=== PATIENT | male | born 1935 | race Caucasian/White ===

== ENCOUNTER 2016-12-05 10:22 | Day surgery (SDC) | payer MEDICARE, OTHER ==
[2016-12-05] VITALS (491 sets, daily range): BP systolic 131–142; BP diastolic 69–102; PULSE 59–65; TEMP 98–98.1; O2SAT 82–100
[~2016-12-05] VITALS: Ht 177.8 cm; Wt 81.8 kg
[~2016-12-05 10:22] MED LIST: ASPIRIN 81M81 MG/TA2 PO; BUSPAR10 MG PO; CIALIS20 MG PO; CLEOCIN HCL300 MG PO; GLUCOSAMINE & C1 CA1 PO; LASIX 20MG TABL20 MG PO; LIPITOR 40MG TA40 MG PO; LOTENSIN 1010 MG/TAB PO; OSTEO-BI-FLEX 21 TAB PO; PERCOCET 325 MG1 TA2 PO; PLAVIX 75MG TAB75 MG PO; PRILOSEC 20MG20 MG PO; RELAFEN 50500 MG/TAB PO; VIAGRA100 M1 PO; VITAMIN B122500 MCG SL; ZYLOPRIM 100MG100 MG PO
[2016-12-05 11:32] LABS: HEMATOCRIT 40.6 % (42.0-52.0); HEMOGLOBIN 13.9 g/dl (13.5-18.0); MEAN CELL VOLUME 93 fl (80.0-100.0); MEAN CORPUSCULAR HEMOGLOBIN 32 pg (27.0-31.0); MEAN CORPUSCULAR HGB CONC 34 g/dl (33.0-37.0); MEAN PLATELET VOLUME 11.1 fl (7.4-10.4); PLATELET COUNT 127 K/mm3 (130-400); RED BLOOD COUNT 4.36 M/mm3 (4.20-5.60); WHITE BLOOD COUNT 6.6 K/mm3 (4.8-10.8)
[2016-12-05 11:40] LABS: INR 1.2 (0.8-3.0); PROTHROMBIN TIME 12.8 SECONDS (9.7-12.8)
[2016-12-05 11:44] LABS: CALCIUM 8.8 mg/dL (8.4-10.2); CREATININE, serum 1.05 mg/dL (0.66-1.25); POTASSIUM 4.3 mmol/L (3.4-5.0)
[2016-12-05] MEDS ORDERED: VITAMIN B122500 MCG SL (12:20)
[2016-12-06] VITALS (474 sets, daily range): BP systolic 135–150; BP diastolic 65–82; PULSE 59; TEMP 97.7–98; O2SAT 88–100
== END 2016-12-06 09:19 | disposition home or self-care (01) ==
LOC: COL.CAR 10:22 → IMCU 13:54 → COL.CAR 12-06 09:19
PROVIDERS: Internal Medicine Interventional Cardiology
DX: I25.10 Atherosclerotic heart disease of native coronary artery without angina pectoris (principal); I10 Essential (primary) hypertension; I87.2 Venous insufficiency (chronic) (peripheral); E78.00 Pure hypercholesterolemia, unspecified; I83.893 Varicose veins of bilateral lower extremities with other complications; I65.23 Occlusion and stenosis of bilateral carotid arteries; Z95.0 Presence of cardiac pacemaker; Z95.818 Presence of other cardiac implants and grafts; Z79.02 Long term (current) use of antithrombotics/antiplatelets; Z80.9 Family history of malignant neoplasm, unspecified; Z82.49 Family history of ischemic heart disease and other diseases of the circulatory system
CPT/HCPCS: OP; C1725; C1760; C1769; C1874; C1887; C9600; J0583; J2250; J3010; Q9967

== ENCOUNTER 2017-01-23 07:47 | Day surgery (SDC) | payer MEDICARE, OTHER ==
[~2017-01-23] VITALS: Ht 177.8 cm; Wt 76.0 kg
[2017-01-23] VITALS (88 sets, daily range): BP systolic 102–143; BP diastolic 52–85; PULSE 59–63; TEMP 97.6–98.3; O2SAT 96–100
[2017-01-23] MEDS ORDERED: ASPIRIN 81M81 MG/TA2 PO (07:58)
[2017-01-23] MEDS ORDERED: LASIX 20MG TABL20 MG PO (08:02)
[2017-01-23] MEDS ORDERED: RELAFEN 50500 MG/TAB PO (08:02)
[2017-01-23] MEDS ORDERED: SUPER BETA PROSTATE PO (08:04)
[2017-01-23] MEDS ORDERED: EPA FISH OIL1 SGL PO (08:05)
[2017-01-23 08:33] LABS: HEMATOCRIT 40.7 % (42.0-52.0); HEMOGLOBIN 13.8 g/dl (13.5-18.0); MEAN CELL VOLUME 93 fl (80.0-100.0); MEAN CORPUSCULAR HEMOGLOBIN 32 pg (27.0-31.0); MEAN CORPUSCULAR HGB CONC 34 g/dl (33.0-37.0); MEAN PLATELET VOLUME 10.5 fl (7.4-10.4); PLATELET COUNT 139 K/mm3 (130-400); RED BLOOD COUNT 4.36 M/mm3 (4.20-5.60); REDCELL DISTRIBUTION WIDTH-CV 14.4 % (11.5-14.5); WHITE BLOOD COUNT 6.3 K/mm3 (4.8-10.8)
[2017-01-23 08:42] LABS: CALCIUM 9.1 mg/dL (8.4-10.2); CREATININE, serum 1.24 mg/dL (0.66-1.25)
[2017-01-23 08:47] LABS: INR 1.1 (0.8-3.0)
== END 2017-01-23 18:05 | disposition short-term general hospital (02) ==
LOC: COL.CAR 07:47 → ICU 17:32 → COL.CAR 18:05
PROVIDERS: Internal Medicine Interventional Cardiology
DX: I25.10 Atherosclerotic heart disease of native coronary artery without angina pectoris (principal); I10 Essential (primary) hypertension; E78.00 Pure hypercholesterolemia, unspecified; Z95.0 Presence of cardiac pacemaker; Z79.01 Long term (current) use of anticoagulants; Z82.49 Family history of ischemic heart disease and other diseases of the circulatory system
CPT/HCPCS: OP; C1725; C1760; C1769; C1874; C1887; C1894; C9600; J0583; J1644; J2250; J3010; Q9967

== ENCOUNTER 2017-10-23 19:00 | Emergency (ER) | payer MEDICARE, OTHER ==
[~2017-10-23] VITALS: Ht 177.8 cm; Wt 77.3 kg
[~2017-10-23 19:00] MED LIST changes: +EPA FISH OIL1 SGL PO; +SUPER BETA PROSTATE PO
[2017-10-23] MEDS ORDERED: ULTRAM 50MG TAB50 MG PO (20:53)
[2017-10-23 21:36] VITALS: BP 171/91; PULSE 73; TEMP 98.1
== END 2017-10-23 21:25 | disposition home or self-care (01) ==
LOC: COL.ER 19:00
DX: S43.102A Unspecified dislocation of left acromioclavicular joint, initial encounter (principal); S09.90XA Unspecified injury of head, initial encounter; I10 Essential (primary) hypertension; I25.10 Atherosclerotic heart disease of native coronary artery without angina pectoris; I49.5 Sick sinus syndrome; E78.5 Hyperlipidemia, unspecified; Z88.0 Allergy status to penicillin; Z88.5 Allergy status to narcotic agent; Z88.6 Allergy status to analgesic agent; Z79.82 Long term (current) use of aspirin; Z79.02 Long term (current) use of antithrombotics/antiplatelets; W18.39XA Other fall on same level, initial encounter

== ENCOUNTER → 2019-12-28 | Outpatient (CLI) | payer MEDICARE, OTHER ==
[~2019-12-28] MED LIST changes: +ULTRAM 50MG TAB50 MG PO
== END ==
LOC: ZCOL.LAB 10:30
DX: R06.02 Shortness of breath (principal); R42 Dizziness and giddiness

== ENCOUNTER 2019-12-31 08:28 | Emergency (ER) | payer MEDICARE, OTHER ==
[~2019-12-31] VITALS: Ht 177.8 cm; Wt 75.0 kg
[2019-12-31 08:31] VITALS: TEMP 97.7
[2019-12-31 09:28] LABS: BASO # 0.1 (0.0-0.2); EOS # 0.1 (0.0-0.7); EOS % 1.3 % (0-4.0); GRAN % 63.6 % (42.2-75.2); HEMATOCRIT 44.7 % (42.0-52.0); HEMOGLOBIN 14.9 g/dl (13.5-18.0); LYMPH # 1.4 (1.2-3.4); LYMPH % 23.2 % (20.0-51.0); MEAN CELL VOLUME 96 fl (80.0-100.0); MEAN CORPUSCULAR HEMOGLOBIN 32 pg (27.0-31.0); MEAN CORPUSCULAR HGB CONC 33 g/dl (33.0-37.0); MEAN PLATELET VOLUME 10.6 fl (7.4-10.4); MONO # 0.7 (0.1-0.6); MONO % 10.6 % (1.7-9.3); PLATELET COUNT 136 K/mm3 (130-400); RED BLOOD COUNT 4.67 M/mm3 (4.20-5.60); REDCELL DISTRIBUTION WIDTH-CV 14.6 % (11.5-14.5)
[2019-12-31 09:41] LABS: INR 1.4 (0.8-3.0); PROTHROMBIN TIME 16.1 SECONDS (9.7-12.8)
[2019-12-31 09:44] LABS: ALANINE AMINOTRANSFERASE 32 U/L (4-49); ALBUMIN 4.5 gm/dL (3.5-5.0); ALKALINE PHOSPHATASE 64 U/L (50-136); ANION GAP 9 mmol/L (7-16); AST,SGOT 36 U/L (15-37); BILIRUBIN,TOTAL 1.4 mg/dL (0.0-1.0); BLOOD UREA NITROGEN 18 mg/dL (9-20); CALCIUM 9.8 mg/dL (8.4-10.2); CARBON DIOXIDE 27 mmol/L (22-30); CHLORIDE 103 mmol/L (98-107); CREATININE, serum 1.29 (0.66-1.25); GLUCOSE 105 mg/dL (74-106); LIPASE 111 U/L (23-300); SODIUM 139 mmol/L (137-145); TOTAL PROTEIN 7.6 gm/dL (6.4-8.2)
[2019-12-31 09:46] LABS: C-REACTIVE PROTEIN < 0.5 mg/dL (0.0-0.9)
[2019-12-31 09:57] VITALS: BP 133/72; PULSE 60
[2019-12-31 10:11] LABS: COLLECTION METHOD CLEAN CATCH
[2019-12-31 10:26] LABS: PH 6 (5-8); SQUAMOUS EPITHELIAL None Seen /hpf; URINE APPEARANCE Clear; URINE BACTERIA None Seen /hpf; URINE BILIRUBIN Negative (NEGATIVE); URINE BLOOD Negative (NEGATIVE); URINE COLOR Yellow; URINE GLUCOSE Negative (NEGATIVE); URINE KETONE Negative (NEGATIVE); URINE LEUKOCYTE ESTERASE Negative (NEGATIVE); URINE NITRATE Negative (NEGATIVE); URINE PROTEIN(semi-quant) Negative (NEGATIVE); URINE RBC 0-2 /hpf; URINE UROBILINOGEN Negative (NEGATIVE)
== END 2019-12-31 10:49 | disposition home or self-care (01) ==
LOC: COL.ER 08:28
PROVIDERS: Emergency Medicine
DX: K92.2 Gastrointestinal hemorrhage, unspecified (principal); I25.10 Atherosclerotic heart disease of native coronary artery without angina pectoris; Z79.02 Long term (current) use of antithrombotics/antiplatelets; Z79.82 Long term (current) use of aspirin
CPT/HCPCS: J7040

== ENCOUNTER 2020-05-27 12:18 | Inpatient (IN) | payer MEDICARE, OTHER ==
[~2020-05-27] VITALS: Ht 177.8 cm; Wt 71.8 kg
[~2020-05-27 12:18] MED LIST changes: +ELIQUIS 5MG PO; +LOPRESSOR 225 MG/TAB PO; +NITROSTAT0.4 MG/TAB SL; +PACERONE100 MG PO
[2020-05-27 13:21] VITALS: BP 142/84; PULSE 74; TEMP 98.6
[2020-05-27 14:45] LABS: COLLECTION METHOD CLEAN CATCH
[2020-05-27] MEDS ORDERED: FLOMAX 0.40.4 MG/CAP PO (14:57)
[2020-05-27 15:01] LABS: ALBUMIN 3.8 gm/dL (3.5-5.0); CALCIUM 8.8 mg/dL (8.4-10.2); CREATININE, serum 0.97 (0.66-1.25); POTASSIUM 3.7 mmol/L (3.4-5.0); TOTAL PROTEIN 6.3 gm/dL (6.4-8.2)
[2020-05-27 15:02] LABS: BASO % 0.2 % (0.0-2.0); EOS % 0.1 % (0-4.0); GRAN # 10.2 (1.4-6.5); GRAN % 83.3 % (42.2-75.2); HEMATOCRIT 42.3 % (42.0-52.0); HEMOGLOBIN 14.1 g/dl (13.5-18.0); LYMPH # 1.1 (1.2-3.4); LYMPH % 8.6 % (20.0-51.0); MEAN CELL VOLUME 90 fl (80.0-100.0); MEAN CORPUSCULAR HEMOGLOBIN 30 pg (27.0-31.0); MEAN CORPUSCULAR HGB CONC 33 g/dl (33.0-37.0); MEAN PLATELET VOLUME 10.9 fl (7.4-10.4); MONO # 0.9 (0.1-0.6); MONO % 7.6 % (1.7-9.3); PLATELET COUNT 132 K/mm3 (130-400); RED BLOOD COUNT 4.69 M/mm3 (4.20-5.60); REDCELL DISTRIBUTION WIDTH-CV 14.4 % (11.5-14.5)
[2020-05-27 15:07] LABS: INR 1.1 (0.8-3.0)
[2020-05-27 15:08] LABS: PRE ALBUMIN 17.8 mg/dL (17.6-36.0)
[2020-05-27] MEDS ORDERED: TYLENOL 500MG500 MG PO (15:13)
[2020-05-27] MEDS ORDERED: DULCOLAX S10 MG/SUPP RC (15:15)
[2020-05-27] MEDS ORDERED: THERATEARS 15 M15 ML OP (15:16)
[2020-05-27] MEDS ORDERED: MILK OF MA400 MG/52 PO (15:17)
[2020-05-27] MEDS ORDERED: IBU400 MG PO (15:18)
[2020-05-27] MEDS ORDERED: PROTONIX20 MG PO (15:19)
[2020-05-27] MEDS ORDERED: EXPECTORANT DM120 ML PO (15:20)
[2020-05-27] MEDS ORDERED: SEROQUEL 2525 MG/TAB PO (15:21)
[2020-05-27] MEDS ORDERED: DECADRON6 MG PO (15:22)
[2020-05-27] MEDS ORDERED: HALDOL .5M0.5 MG/TAB PO ×2 (15:22→15:24)
[2020-05-27] MEDS ORDERED: HALDOL 5MG/ML5 MG/ML IJ (15:25)
[2020-05-27 15:27] LABS: PH 6 (5-8); SQUAMOUS EPITHELIAL None Seen /hpf; URINE APPEARANCE Clear; URINE BACTERIA None Seen /hpf; URINE BILIRUBIN Negative (NEGATIVE); URINE BLOOD Negative (NEGATIVE); URINE COLOR Yellow; URINE GLUCOSE Negative (NEGATIVE); URINE KETONE Negative (NEGATIVE); URINE LEUKOCYTE ESTERASE Negative (NEGATIVE); URINE NITRATE Negative (NEGATIVE); URINE PROTEIN(semi-quant) Negative (NEGATIVE); URINE RBC 0-2 /hpf; URINE UROBILINOGEN Negative (NEGATIVE)
[2020-05-27] MEDS ORDERED: NORCO 325 MG-51 TAB PO (15:31)
[2020-05-27 16:00] VITALS: BP 166/88; PULSE 60; TEMP 97.8
[2020-05-27 19:42] VITALS: BP 164/52; PULSE 75; TEMP 100
[2020-05-28] VITALS (13 sets, daily range): BP systolic 113–174; BP diastolic 53–87; PULSE 65–88; TEMP 98.3–100
[2020-05-29] VITALS (7 sets, daily range): BP systolic 129–178; BP diastolic 55–85; PULSE 61–83; TEMP 97.8–99.5
[2020-05-29 06:53] LABS: BASO % 0.1 % (0.0-2.0); GRAN # 8.2 (1.4-6.5); GRAN % 79.7 % (42.2-75.2); HEMOGLOBIN 12.2 g/dl (13.5-18.0); LYMPH # 0.9 (1.2-3.4); LYMPH % 8.7 % (20.0-51.0); MEAN CELL VOLUME 91 fl (80.0-100.0); MEAN CORPUSCULAR HEMOGLOBIN 31 pg (27.0-31.0); MEAN CORPUSCULAR HGB CONC 33 g/dl (33.0-37.0); MEAN PLATELET VOLUME 10.4 fl (7.4-10.4); MONO # 1.2 (0.1-0.6); MONO % 11.3 % (1.7-9.3); PLATELET COUNT 58 K/mm3 (130-400); REDCELL DISTRIBUTION WIDTH-CV 14.5 % (11.5-14.5)
[2020-05-29 06:55] LABS: HEMATOCRIT 36.5 % (42.0-52.0)
[2020-05-29 07:05] LABS: CALCIUM 8.1 mg/dL (8.4-10.2); CREATININE, serum 0.91 (0.66-1.25); POTASSIUM 3.7 mmol/L (3.4-5.0)
[2020-05-30 03:48] VITALS: BP 158/59; PULSE 68; TEMP 97.5
[2020-05-30 07:20] LABS: CALCIUM 8.2 mg/dL (8.4-10.2); CREATININE, serum 0.78 (0.66-1.25); POTASSIUM 3.6 mmol/L (3.4-5.0)
[2020-05-30 08:51] VITALS: BP 180/65; PULSE 72; TEMP 97.9
[2020-05-30 09:23] LABS: BASO % 0.1 % (0.0-2.0); EOS % 0.4 % (0-4.0); GRAN % 81.3 % (42.2-75.2); LYMPH # 0.9 (1.2-3.4); MEAN CELL VOLUME 91 fl (80.0-100.0); MEAN CORPUSCULAR HEMOGLOBIN 30 pg (27.0-31.0); MEAN CORPUSCULAR HGB CONC 33 g/dl (33.0-37.0); MEAN PLATELET VOLUME 10.9 fl (7.4-10.4); MONO # 1.1 (0.1-0.6); MONO % 9.8 % (1.7-9.3); PLATELET COUNT 136 K/mm3 (130-400); RED BLOOD COUNT 4.02 M/mm3 (4.20-5.60); REDCELL DISTRIBUTION WIDTH-CV 14.3 % (11.5-14.5)
[2020-05-30 10:24] LABS: HEMATOCRIT 36.6 % (42.0-52.0)
[2020-05-30 12:19] VITALS: BP 186/67; PULSE 95; TEMP 96.9
[2020-05-30 16:15] VITALS: BP 178/82; PULSE 78; TEMP 97.4
[2020-05-30 19:34] VITALS: BP 160/71; PULSE 81; TEMP 99.9
[2020-05-30 23:23] VITALS: BP 156/64; PULSE 84; TEMP 100.2
[2020-05-31 04:42] VITALS: BP 163/76; PULSE 76; TEMP 100.9
[2020-05-31 07:17] LABS: COLLECTION METHOD CLEAN CATCH
[2020-05-31 07:22] LABS: BASO % 0.1 % (0.0-2.0); EOS % 0.4 % (0-4.0); GRAN # 7.8 (1.4-6.5); GRAN % 81.2 % (42.2-75.2); HEMOGLOBIN 11.5 g/dl (13.5-18.0); LYMPH # 0.7 (1.2-3.4); LYMPH % 7.4 % (20.0-51.0); MEAN CELL VOLUME 91 fl (80.0-100.0); MEAN CORPUSCULAR HEMOGLOBIN 30 pg (27.0-31.0); MEAN CORPUSCULAR HGB CONC 33 g/dl (33.0-37.0); MEAN PLATELET VOLUME 11.7 fl (7.4-10.4); MONO % 10.6 % (1.7-9.3); PLATELET COUNT 82 K/mm3 (130-400); RED BLOOD COUNT 3.82 M/mm3 (4.20-5.60); REDCELL DISTRIBUTION WIDTH-CV 14.1 % (11.5-14.5)
[2020-05-31 07:33] LABS: HEMATOCRIT 34.9 % (42.0-52.0)
[2020-05-31 07:34] LABS: CALCIUM 7.9 mg/dL (8.4-10.2); CREATININE, serum 0.76 (0.66-1.25); POTASSIUM 3.4 mmol/L (3.4-5.0)
[2020-05-31 07:43] LABS: MUCOUS Present /lpf; PH 8 (5-8); SQUAMOUS EPITHELIAL None Seen /hpf; URINE APPEARANCE Hazy; URINE BACTERIA None Seen /hpf; URINE BILIRUBIN Negative (NEGATIVE); URINE BLOOD 3+ (NEGATIVE); URINE COLOR Yellow; URINE GLUCOSE Negative (NEGATIVE); URINE KETONE Negative (NEGATIVE); URINE LEUKOCYTE ESTERASE Negative (NEGATIVE); URINE NITRATE Negative (NEGATIVE); URINE PROTEIN(semi-quant) 2+ (NEGATIVE); URINE RBC >50 /hpf; URINE UROBILINOGEN Negative (NEGATIVE)
[2020-05-31 08:37] VITALS: BP 162/72; PULSE 68; TEMP 97.9
[2020-05-31 12:00] VITALS: BP 155/79; PULSE 73; TEMP 97.8
[2020-05-31 16:00] VITALS: BP 162/74; PULSE 77
[2020-05-31 20:03] VITALS: BP 132/64; PULSE 73; TEMP 98
[2020-06-01 00:02] VITALS: BP 139/72; PULSE 75; TEMP 98.2
[2020-06-01 04:01] VITALS: BP 152/74; PULSE 60; TEMP 98.7
[2020-06-01 07:08] LABS: CALCIUM 8.3 mg/dL (8.4-10.2); CREATININE, serum 0.74 (0.66-1.25); POTASSIUM 3.6 mmol/L (3.4-5.0)
[2020-06-01 08:00] VITALS: BP 160/70; PULSE 65; TEMP 97.4
[2020-06-01] MEDS ORDERED: ASPI325T6 PO (10:51)
[2020-06-01] MEDS ORDERED: NORVASC 10MG10 MG PO (10:51)
[2020-06-01 14:01] VITALS: BP 160/70; PULSE 65; TEMP 97.4
== END 2020-06-01 14:03 | DRG 521 ==
LOC: MEDICAL 12:18 → PEDS 13:33
PROVIDERS: Nurse Practitioner Family; Orthopaedic Surgery; Physician Assistant; Student in an Organized Health Care Education/Training Program; ADMIT Family Medicine
PROC: 0SRR0J9 Replacement of Right Hip Joint, Femoral Surface with Synthetic Substitute, Cemented, Open Approach (ICD-10-PCS; principal; 2020-05-28 09:00)
DX: S72.031A Displaced midcervical fracture of right femur, initial encounter for closed fracture (principal); U07.1 COVID-19; F03.91 Unspecified dementia, unspecified severity, with behavioral disturbance; I25.10 Atherosclerotic heart disease of native coronary artery without angina pectoris; I10 Essential (primary) hypertension; E78.5 Hyperlipidemia, unspecified; K21.9 Gastro-esophageal reflux disease without esophagitis; N40.0 Benign prostatic hyperplasia without lower urinary tract symptoms; M19.90 Unspecified osteoarthritis, unspecified site; D64.9 Anemia, unspecified; M10.9 Gout, unspecified; R13.10 Dysphagia, unspecified; D69.6 Thrombocytopenia, unspecified; Z95.5 Presence of coronary angioplasty implant and graft; Z95.0 Presence of cardiac pacemaker; Z88.0 Allergy status to penicillin; Z87.891 Personal history of nicotine dependence; W19.XXXA Unspecified fall, initial encounter
CPT/HCPCS: 99222-AI; 99232-AI; 99233-AI; A9284; C1713; C1776; J0690; J1100; J2001; J2250; J2270; J2704; J3010; J7120; J7121